=== PATIENT | female | born 1995 | race African-American/Black ===

== ENCOUNTER 2022-12-27 06:54 | Day surgery (SDC) | payer OTHER ==
[~2022-12-27] VITALS: Ht 172.7 cm; Wt 82.9 kg
[~2022-12-27 06:54] MED LIST: THERTAB52 PO
[2022-12-27] MEDS ORDERED: LR 1,000 ML IV SCH ×2 (07:10→10:15)
[2022-12-27] MEDS ORDERED: LIDOCAINE 2% 100MG/5ML SDV (FOR ANES.) As Ordered ONE (07:57)
[2022-12-27] MEDS ORDERED: ONDANSETRON 4MG 2ML VIAL As Ordered ONE (07:57)
[2022-12-27] MEDS ORDERED: propofoL 200 MG/20 ML VIAL As Ordered ONE (07:57)
[2022-12-27] MEDS ORDERED: MIDAZOLAM INJ 2MG/2ML VIAL As Ordered ONE (08:02)
[2022-12-27] MEDS ORDERED: fentaNYL 100 MCG/2 ML INJECTION As Ordered ONE (08:02)
[2022-12-27] MEDS ORDERED: IODINE STRONG SOLN 15ML BTL As Ordered ONE (09:00)
[2022-12-27] MEDS ORDERED: LIDOCAINE W/EPINEPHRINE 1% 20ML VIAL As Ordered ONE (09:00)
[2022-12-27] MEDS ORDERED: ACETAMINOPHEN 1000MG 100ML IV BAG As Ordered ONE (09:20)
[2022-12-27] MEDS ORDERED: ONDANSETRON 4MG 2ML VIAL IV PRN (10:15)
[2022-12-27] MEDS ORDERED: fentaNYL 100 MCG/2 ML INJECTION IV PRN (10:15)
[2022-12-27] MEDS ORDERED: oxyCODONE 5MG TAB PO PRN (10:15)
[2022-12-27] MEDS ORDERED: HYDROMORPHONE HCL 0.5 MG/ 0.5 ML SYRINGE IV PRN (10:15)
[2022-12-27 11:47] VITALS: BP 138/88; TEMP 97.2; O2SAT 99
== END 2022-12-27 11:48 | disposition home or self-care (01) ==
LOC: M SDC 06:54
PROVIDERS: ATTEND Obstetrics & Gynecology
DX: D06.9 Carcinoma in situ of cervix, unspecified (principal)
CPT/HCPCS: 57460; 81025; 88305; 88307; J0131; J1100; J2250; J2405; J3010

== ENCOUNTER 2023-08-16 08:30 | Emergency (ER) | payer OTHER ==
[~2023-08-16] VITALS: Ht 172.7 cm; Wt 85.4 kg
[2023-08-16] MEDS ORDERED: CYMB1CAP4 PO (08:44)
[2023-08-16] MEDS ORDERED: NALT50TA4 PO (08:44)
[2023-08-16] MEDS ORDERED: BUPR300T92 PO (08:44)
[2023-08-16 09:04] LABS: BASO % 0.2 % (0.0-1.0); EOS # 0.1 10^3/uL (0.0-0.5); EOS % 0.5 % (0.0-3.0); HEMATOCRIT 44.8 % (36.0-47.0); HEMOGLOBIN 14.6 g/dl (12.0-15.5); LYMPH # 2.5 10^3/uL (1.5-5.0); LYMPH % 18.9 % (24.0-44.0); MEAN CORPUSCULAR HEMOGLOBIN 27.8 pg (27.0-33.0); MEAN CORPUSCULAR HGB CONC 32.6 g/dl (32.0-36.5); MEAN CORPUSCULAR VOLUME 85.3 fl (80.0-96.0); MONO # 0.9 10^3/uL (0.0-0.8); MONO % 6.9 % (2.0-8.0); NEUTROPHILS # 9.6 10^3/uL (1.5-8.5); NEUTROPHILS % 73.2 % (36.0-66.0); PLATELET COUNT, AUTOMATED 265 10^3/uL (150-450); RED BLOOD COUNT 5.25 10^6/uL (4.00-5.40); WHITE BLOOD COUNT 13.1 10^3/uL (4.0-10.0)
[2023-08-16 09:36] LABS: LIPASE 32 U/L (12-53)
[2023-08-16 09:37] LABS: HCG, SERUM QUALITATIVE NEGATIVE (NEGATIVE)
[2023-08-16 09:38] LABS: ALKALINE PHOSPHATASE 45 U/L (46-116); ALT/SGPT 26 U/L (7.0-40); AST/SGOT 12 U/L (<34); BILIRUBIN,DIRECT 0.2 MG/DL (<0.4); BILIRUBIN,TOTAL 0.6 MG/DL (0.3-1.2); BLOOD UREA NITROGEN 13 MG/DL (9-23); CALCIUM LEVEL 9.3 MG/DL (8.5-10.1); CARBON DIOXIDE LEVEL 28 MMOL/L (20-31); CHLORIDE LEVEL 105 MMOL/L (98-107); CREATININE FOR GFR 0.95 MG/DL (0.55-1.30); GLOMERULAR FILTRATION RATE > 60.0 (>60); GLUCOSE, FASTING 116 MG/DL (60-100); POTASSIUM SERUM 4.3 MMOL/L (3.5-5.1); SODIUM LEVEL 137 MMOL/L (136-145); TOTAL PROTEIN 7.3 G/DL (5.7-8.2)
[2023-08-16] MEDS: KETOROLAC 30 MG/ML 1ML VIAL IV ONE (11:51)
[2023-08-16] MEDS: ONDANSETRON 4MG 2ML VIAL IV ONE (11:52)
[2023-08-16] MEDS: NS 1,000 ML IV ONE (11:52)
[2023-08-16] MEDS ORDERED: ISOVUE-370 76% 100ML VIAL As Ordered ONE (12:04)
[2023-08-16] MEDS ORDERED: KETO10TAB PO (14:21)
[2023-08-16] MEDS ORDERED: MIRA3350 PO (14:21)
[2023-08-16 14:40] VITALS: BP 138/72; TEMP 97.9; O2SAT 99
== END 2023-08-16 14:48 | disposition home or self-care (01) ==
LOC: M ED 08:30
DX: K59.00 Constipation, unspecified (principal); N83.202 Unspecified ovarian cyst, left side; Z79.899 Other long term (current) drug therapy; Z79.810 Long term (current) use of selective estrogen receptor modulators (SERMs)
CPT/HCPCS: 74177; 76856; 80048; 80076; 81001; 83690; 84703; 85025; 87086; 93976; 96361; 96374; 96375; 99284; J1885; J2405; Q9967

== ENCOUNTER → 2024-02-26 | Outpatient (CLI) | payer OTHER ==
[~2024-02-26] MED LIST changes: +BUPR-597 PO; +CYMB1CAP4 PO; +KETO10TAB PO; +MIRA3350 PO; +NALT50TA4 PO
== END ==
LOC: M SOG 07:20
PROVIDERS: ATTEND Orthopaedic Surgery
DX: M25.532 Pain in left wrist (principal)

== ENCOUNTER 2024-03-19 07:43 | Day surgery (SDC) | payer OTHER ==
[~2024-03-19] VITALS: Ht 172.7 cm; Wt 86.0 kg
[~2024-03-19 07:43] MED LIST changes: +D 50CAP2 PO
[2024-03-19] MEDS ORDERED: LIDOCAINE 1% SDV 5ML VIAL SC PRN (08:00)
[2024-03-19] MEDS ORDERED: LR 1,000 ML IV SCH ×2 (08:00→12:40)
[2024-03-19] MEDS ORDERED: NS 1,000 ML IV SCH (08:00)
[2024-03-19] MEDS ORDERED: KETOROLAC 60MG 2ML VIAL As Ordered ONE (09:14)
[2024-03-19] MEDS ORDERED: ONDANSETRON 4MG 2ML VIAL As Ordered ONE (09:14)
[2024-03-19] MEDS ORDERED: MIDAZOLAM INJ 2MG/2ML VIAL As Ordered ONE (09:14)
[2024-03-19] MEDS ORDERED: dexmedeTOMIDine (4MCG/ML)200MCG/50ML BTL (PRECEDEX) As Ordered ONE (09:14)
[2024-03-19] MEDS ORDERED: LIDOCAINE 2% 100MG/5ML SDV (FOR ANES.) As Ordered ONE (09:14)
[2024-03-19] MEDS ORDERED: fentaNYL 250 MCG/5 ML INJECTION As Ordered ONE (09:14)
[2024-03-19] MEDS ORDERED: propofoL 200 MG/20 ML VIAL As Ordered ONE (09:14)
[2024-03-19] MEDS: LIDOCAINE 1% SDV 30ML VIAL As Ordered ONE (10:25)
[2024-03-19] MEDS: SILVER NITRATE APPLICATOR (1 = QTY 10) As Ordered ONE (10:30)
[2024-03-19] MEDS ORDERED: ACETAMINOPHEN 1000MG 100ML IV BAG As Ordered ONE (12:12)
[2024-03-19] MEDS ORDERED: ePHEDrine SULFATE 25 MG/5 ML(5MG/ML) SYRINGE As Ordered ONE (12:13)
[2024-03-19] MEDS ORDERED: ONDANSETRON 4MG 2ML VIAL IV PRN ×2 (12:40→13:05)
[2024-03-19] MEDS ORDERED: fentaNYL 100 MCG/2 ML INJECTION IV PRN (12:40)
[2024-03-19] MEDS ORDERED: HYDROMORPHONE HCL 0.5 MG/ 0.5 ML SYRINGE IV PRN (12:40)
[2024-03-19] MEDS ORDERED: oxyCODONE 5MG TAB PO PRN (13:05)
[2024-03-19] MEDS ORDERED: METOCLOPRAMIDE INJ 10MG/2ML VIAL IV PRN (13:05)
[2024-03-19] MEDS ORDERED: diphenhydrAMINE 25MG CAP PO PRN (13:05)
[2024-03-19] MEDS ORDERED: PROMETHAZINE 25MG/ML 1ML VIAL IV PRN (13:05)
[2024-03-19] MEDS: oxyCODONE 5MG TAB PO PRN (13:25)
[2024-03-19 14:20] VITALS: BP 127/67; TEMP 97.5; O2SAT 99
== END 2024-03-19 14:25 | disposition home or self-care (01) ==
LOC: M SDC 07:43
PROVIDERS: ATTEND General Practice
DX: N84.0 Polyp of corpus uteri (principal); Z79.899 Other long term (current) drug therapy
CPT/HCPCS: 58558; 81025; 88305; J0131; J1100; J1885; J2250; J2405; J3010

== ENCOUNTER → 2024-06-15 | Outpatient (REF) | LOC: M PLAIMG 09:24 | PROVIDERS: ATTEND Internal Medicine | DX: R06.02 Shortness of breath (principal) ==

== ENCOUNTER → 2024-07-09 | Outpatient (REF) | LOC: M PLAIMG 08:37 | PROVIDERS: ATTEND Internal Medicine | DX: R52 Pain, unspecified (principal) ==